=== PATIENT | female | born 1970 | race Two or more races ===

== ENCOUNTER 2017-10-05 10:59 | Outpatient (CLI) | payer OTHER | END 2017-10-05 11:16 | disposition home or self-care (01) | LOC: RAD 10:59 | DX: R10.84 Generalized abdominal pain (principal); J00 Acute nasopharyngitis [common cold]; M54.2 Cervicalgia; M54.6 Pain in thoracic spine; M54.5 Low back pain ==

== ENCOUNTER → 2017-10-13 | Outpatient (CLI) | payer OTHER | END | disposition home or self-care (01) | LOC: NUCLEAR 09:06 | DX: M81.0 Age-related osteoporosis without current pathological fracture (principal) ==

== ENCOUNTER 2017-10-14 09:53 | Outpatient (CLI) | payer OTHER | END 2017-10-14 10:01 | disposition home or self-care (01) | LOC: LAB 09:53 | DX: E78.2 Mixed hyperlipidemia (principal) ==

== ENCOUNTER 2017-10-17 08:56 | Outpatient (CLI) | payer OTHER | END 2017-10-17 17:00 | disposition home or self-care (01) | LOC: TOM 08:56 | DX: N28.1 Cyst of kidney, acquired (principal) ==